=== PATIENT | female | born 1965 | race Native Hawaiian/Other Pacific Islander ===

== ENCOUNTER 2018-05-18 09:59 | Emergency (ER) | payer OTHER ==
[~2018-05-18] VITALS: Ht 180.3 cm; Wt 65.8 kg
[2018-05-18 10:13] VITALS: TEMP 97.3
[2018-05-18 11:56] LABS: PLATELET COUNT 190 K/uL (152-353)
[2018-05-18 12:07] LABS: POTASSIUM 3.6 mmol/L (3.6-5.2)
[2018-05-18 15:10] VITALS: BP 129/78
== END 2018-05-18 15:12 | disposition home or self-care (01) ==
LOC: ED 09:59
DX: M17.12 Unilateral primary osteoarthritis, left knee (principal)
CPT/HCPCS: 36415; 80053; 80307; 81000; 84550; 85027; 96374; 96375; 99284; J1100; J1885; J2550; L1830

== ENCOUNTER 2018-12-02 10:38 | Outpatient (CLI) | payer OTHER | END 2018-12-02 10:47 | disposition short-term general hospital (02) | LOC: AMB 10:38 | DX: R68.84 Jaw pain (principal) | CPT/HCPCS: A0425; A0429 ==

== ENCOUNTER 2018-12-02 10:48 | Emergency (ER) | payer OTHER ==
[~2018-12-02] VITALS: Ht 180.3 cm; Wt 59.0 kg
[2018-12-02 10:48] VITALS: BP 203/131; TEMP 97.9
== END 2018-12-02 11:29 | disposition home or self-care (01) ==
LOC: ED 10:53
DX: K02.9 Dental caries, unspecified (principal); K04.7 Periapical abscess without sinus; K08.89 Other specified disorders of teeth and supporting structures
CPT/HCPCS: 96372; 99283; J1885